=== PATIENT | male | born 1935 | race African-American/Black ===

== ENCOUNTER → 2017-05-23 | Outpatient (CLI) | payer BC ==
[2017-05-23 14:27] LABS: ADD MAN DIFF? NO
[2017-05-23 14:37] LABS: WHITE BLOOD COUNT 7.7 10^3/ul (4.8-10.8)
[2017-05-23 14:37] LABS: BASOPHILS % 0.5 % (0.0-2.0); EOSINOPHILS # 0.2 10^3/ul (0.0-0.5); EOSINOPHILS % 2.2 % (0.0-7.0); HEMOGLOBIN 13.4 g/dl (14.0-18.0); LYMPHOCYTES # 1.1 10^3/ul (0.8-2.9); LYMPHOCYTES % 13.7 % (15.0-51.0); MEAN CORPUSCULAR HEMOGLOBIN 31.1 pg (29.0-33.0); MEAN CORPUSCULAR HGB CONC 33.5 g/dl (32.0-37.0); MEAN CORPUSCULAR VOLUME 92.8 fl (82.0-101.0); MEAN PLATELET VOLUME 11.1 fl (7.4-10.4); MONOCYTE # 0.9 10^3/ul (0.3-0.9); MONOCYTES % 11.1 % (0.0-11.0); NEUTROPHIL # 5.6 10^3/ul (1.6-7.5); NEUTROPHILS % 72.4 % (39.0-77.0); PLATELET COUNT 186 10^3/UL (140-415); RED BLOOD COUNT 4.31 10^6/ul (4.70-6.10); RED CELL DISTRIBUTION WIDTH 12.8 % (11.5-14.5)
[2017-05-23 14:40] LABS: ADD UMIC NO; UR ASCORBIC ACID 40 mg/dL (NEGATIVE); UR BILIRUBIN (Dip) NEGATIVE (NEGATIVE); UR BLOOD (Dip) NEGATIVE (NEGATIVE); UR CLARITY CLEAR (CLEAR); UR COLOR YELLOW (YELLOW); UR GLUCOSE (Dip) NEGATIVE (NEGATIVE); UR KETONES (Dip) NEGATIVE (NEGATIVE); UR LEUKOCYTE ESTERASE (Dip) NEGATIVE Leu/ul (NEGATIVE); UR NITRITE (Dip) NEGATIVE (NEGATIVE); UR SPECIFIC GRAVITY (Dip) 1.016 (1.003-1.030); UR TOTAL PROTEIN (Dip) NEGATIVE (NEGATIVE); UR UROBILINOGEN (Dip) NEGATIVE (NEGATIVE)
[2017-05-23 14:47] LABS: INR 0.98; PROTIME 13.1 Sec (11.9-14.9)
[2017-05-23 14:48] LABS: PARTIAL THROMBOPLASTIN TIME 25.8 Sec (25.0-35.0)
[2017-05-23 15:01] LABS: ALANINE AMINOTRANSFERASE 38 IU/L (13-69); ALBUMIN 4.1 g/dl (3.3-4.9); ALBUMIN/GLOBULIN RATIO 1.24; ALKALINE PHOSPHATASE 66 IU/L (42-121); ANION GAP 16 (8-16); ASPARTATE AMINO TRANSFERASE 28 IU/L (15-46); BILIRUBIN,INDIRECT 0.5 mg/dl (0-1.1); BILIRUBIN,TOTAL 0.5 mg/dl (0.2-1.3); BLOOD UREA NITROGEN 21 mg/dl (7-20); CALCIUM 9.5 mg/dl (8.4-10.2); CARBON DIOXIDE 28 mmol/L (21-31); CHLORIDE 101 mmol/L (97-110); CREATININE 1.21 mg/dl (0.61-1.24); GLUCOSE 105 mg/dl (70-220); POTASSIUM 3.7 mmol/L (3.5-5.1); SODIUM 141 mmol/L (135-144); TOTAL PROTEIN 7.4 g/dl (6.1-8.1)
== END | disposition home or self-care (01) ==
LOC: LAB 12:54
DX: Z01.818 Encounter for other preprocedural examination (principal); J20.9 Acute bronchitis, unspecified; L97.209 Non-pressure chronic ulcer of unspecified calf with unspecified severity; I25.10 Atherosclerotic heart disease of native coronary artery without angina pectoris
CPT/HCPCS: 71046; 80053; 81003; 85025; 85610; 85730; 93005

== ENCOUNTER 2017-05-30 09:41 | Inpatient (IN) | payer MEDICARE, BC ==
[~2017-05-30 09:41] MED LIST: GELATIN SIZE 100 SPONGE; LIDOCAINE 1% (MPF) 30 ML INJ
[2017-05-30] MEDS: CEFAZOLIN 2 GM/50 ML (PMX) 50 ML IVPB (11:58)
[2017-05-30] MEDS ORDERED: MIDAZOLAM 1 MG/ML 2 ML INJ (12:03)
[2017-05-30] MEDS: THROMBIN 5000 UNIT VIAL (12:49)
[2017-05-30] MEDS: THROMBIN 5000 UNIT VIAL TOP (12:49)
[2017-05-30] MEDS: HEPARIN 1000 UNITS/ML 10 ML INJ (12:49)
[2017-05-30] MEDS ORDERED: PROTAMINE 250 MG INJ (14:04)
[2017-05-30] MEDS ORDERED: LIDOCAINE 2% (SDV) 5 ML INJ (14:28)
[2017-05-30] MEDS ORDERED: ETOMIDATE 20 MG INJ (14:28)
[2017-05-30] MEDS ORDERED: CEFAZOLIN 1 GM INJ (14:28)
[2017-05-30] MEDS ORDERED: ONDANSETRON 4 MG INJ (14:29)
[2017-05-30] MEDS: FENTAnyl 50 MCG/ML VIAL IV ×2 (14:58→16:09)
[2017-05-30] MEDS: ONDANSETRON 4 MG INJ IV (14:59)
[2017-05-30] MEDS ORDERED: MEPERIDINE 25 MG INJ IV (15:00)
[2017-05-30] MEDS ORDERED: METOCLOPRAMIDE 10 MG INJ IV (15:00)
[2017-05-30] MEDS: hydrALAzine 20 MG INJ IV (15:00)
[2017-05-30] MEDS ORDERED: HYDROmorphONE (0.2 MG/ML) 10ML SYG IV ×2 (15:00)
[2017-05-30] MEDS ORDERED: LABETALOL HCL 20MG INJ IV (15:00)
[2017-05-30] MEDS ORDERED: DIPHENHYDRAMINE 50 MG INJ IV (15:00)
[2017-05-30] MEDS ORDERED: ONDANSETRON 4 MG INJ IV (15:30)
[2017-05-30] MEDS ORDERED: OXYCODONE/ACETAMINOPHEN (5/325) TAB PO (15:30)
[2017-05-30] MEDS ORDERED: morphine 2 MG INJ IV (15:30)
[2017-05-30] MEDS: ASPIRIN 81 MG TAB PO (16:11)
[2017-05-30] MEDS: D5W-0.45 NACL + KCL 20 MEQ 1,000 ML IV (16:15)
[2017-05-30] MEDS: niCARdipine 50 MG in SOD CHLORIDE 0.9% 480 ML IV (16:21)
[2017-05-30] MEDS: ATORVASTATIN 40 MG TAB PO (21:00)
[2017-05-31] MEDS: D5W-0.45 NACL + KCL 20 MEQ 1,000 ML IV ×2 (01:11→11:11)
[2017-05-31] MEDS: niCARdipine 50 MG in SOD CHLORIDE 0.9% 480 ML IV (04:10)
[2017-05-31 05:48] LABS: ADD MAN DIFF? NO
[2017-05-31 05:58] LABS: WHITE BLOOD COUNT 8.7 10^3/ul (4.8-10.8)
[2017-05-31 05:58] LABS: BASOPHILS % 0.3 % (0.0-2.0); EOSINOPHILS # 0.2 10^3/ul (0.0-0.5); EOSINOPHILS % 1.9 % (0.0-7.0); HEMATOCRIT 34.4 % (42.0-52.0); HEMOGLOBIN 11.7 g/dl (14.0-18.0); LYMPHOCYTES # 0.9 10^3/ul (0.8-2.9); LYMPHOCYTES % 10.4 % (15.0-51.0); MEAN CORPUSCULAR HEMOGLOBIN 31.4 pg (29.0-33.0); MEAN CORPUSCULAR VOLUME 92.2 fl (82.0-101.0); MEAN PLATELET VOLUME 10.9 fl (7.4-10.4); MONOCYTE # 1.2 10^3/ul (0.3-0.9); MONOCYTES % 13.9 % (0.0-11.0); NEUTROPHIL # 6.4 10^3/ul (1.6-7.5); NEUTROPHILS % 73.3 % (39.0-77.0); PLATELET COUNT 147 10^3/UL (140-415); RED BLOOD COUNT 3.73 10^6/ul (4.70-6.10)
[2017-05-31 06:10] LABS: ANION GAP 11 (8-16); CARBON DIOXIDE 27 mmol/L (21-31); CHLORIDE 105 mmol/L (97-110); GLUCOSE 124 mg/dl (70-220)
[2017-05-31 06:13] LABS: BLOOD UREA NITROGEN 15 mg/dl (7-20); CALCIUM 9.1 mg/dl (8.4-10.2); CREATININE 0.95 mg/dl (0.61-1.24); POTASSIUM 3.5 mmol/L (3.5-5.1); SODIUM 139 mmol/L (135-144)
[2017-05-31] MEDS: AMLODIPINE 5 MG TAB PO (09:27)
[2017-05-31] MEDS: LORAZEPAM 0.5 MG TAB PO ×2 (09:39→16:23)
[2017-05-31] MEDS ORDERED: ASPIRIN (EC) 325 MG TAB PO (09:41)
[2017-05-31] MEDS: ASPIRIN 325 MG TAB PO (10:24)
[2017-05-31] MEDS: ATORVASTATIN 40 MG TAB PO (20:56)
[2017-06-01] MEDS: LORAZEPAM 0.5 MG TAB PO (01:15)
[2017-06-01] MEDS: DIPHENHYDRAMINE 25 MG CAP PO (01:15)
[2017-06-01 07:44] LABS: ADD MAN DIFF? NO
[2017-06-01 07:49] LABS: ABNORMAL IP MESSAGE 1; BASOPHILS % 0.4 % (0.0-2.0); EOSINOPHILS # 0.3 10^3/ul (0.0-0.5); EOSINOPHILS % 2.6 % (0.0-7.0); HEMATOCRIT 36.3 % (42.0-52.0); HEMOGLOBIN 12.5 g/dl (14.0-18.0); LYMPHOCYTES # 1.7 10^3/ul (0.8-2.9); LYMPHOCYTES % 14.9 % (15.0-51.0); MEAN CORPUSCULAR HEMOGLOBIN 31.6 pg (29.0-33.0); MEAN CORPUSCULAR HGB CONC 34.4 g/dl (32.0-37.0); MEAN CORPUSCULAR VOLUME 91.7 fl (82.0-101.0); MONOCYTE # 1.8 10^3/ul (0.3-0.9); MONOCYTES % 15.6 % (0.0-11.0); NEUTROPHIL # 7.5 10^3/ul (1.6-7.5); NEUTROPHILS % 66.3 % (39.0-77.0); PLATELET COUNT 152 10^3/UL (140-415); POSITIVE DIFF @See below; RED BLOOD COUNT 3.96 10^6/ul (4.70-6.10); RED CELL DISTRIBUTION WIDTH 12.9 % (11.5-14.5)
[2017-06-01 07:49] LABS: WHITE BLOOD COUNT 11.3 10^3/ul (4.8-10.8)
[2017-06-01 08:21] LABS: ANION GAP 16 (8-16); BLOOD UREA NITROGEN 17 mg/dl (7-20); CALCIUM 9.1 mg/dl (8.4-10.2); CARBON DIOXIDE 22 mmol/L (21-31); CHLORIDE 106 mmol/L (97-110); CREATININE 1.08 mg/dl (0.61-1.24); GLUCOSE 126 mg/dl (70-220); MAGNESIUM 1.7 mg/dl (1.7-2.5); POTASSIUM 3.6 mmol/L (3.5-5.1); SODIUM 140 mmol/L (135-144)
[2017-06-01] MEDS: AMLODIPINE 5 MG TAB PO (09:02)
[2017-06-01] MEDS: ASPIRIN 325 MG TAB PO (09:02)
[2017-06-01] MEDS: MAGNESIUM SULFATE 2 GM/50 ML 50 ML IVPB (14:17)
== END 2017-06-01 17:20 | disposition home or self-care (01) | DRG 272 ==
LOC: REC 09:41 → TEL 05-31 11:30
PROC: 04CJ0ZZ Extirpation of Matter from Left External Iliac Artery, Open Approach (ICD-10-PCS; principal; 2017-05-30 11:58)
PROC: 04CL0ZZ Extirpation of Matter from Left Femoral Artery, Open Approach (ICD-10-PCS; 2017-05-30 11:58)
DX: I70.242 Atherosclerosis of native arteries of left leg with ulceration of calf (principal); F01.50 Vascular dementia, unspecified severity, without behavioral disturbance, psychotic disturbance, mood disturbance, and anxiety; I10 Essential (primary) hypertension; L97.229 Non-pressure chronic ulcer of left calf with unspecified severity; E78.5 Hyperlipidemia, unspecified
CPT/HCPCS: 80048; 83735; 85025; 88304; 88311

== ENCOUNTER → 2018-08-14 | Outpatient (CLI) | payer BC, MEDICARE ==
[2018-08-14 12:11] LABS: ADD MAN DIFF? NO
[2018-08-14 12:12] LABS: WHITE BLOOD COUNT 6.7 10^3/ul (4.8-10.8)
[2018-08-14 12:12] LABS: BASOPHIL # 0.1 10^3/ul (0.0-0.1); BASOPHILS % 0.8 % (0.0-2.0); EOSINOPHILS # 0.2 10^3/ul (0.0-0.5); EOSINOPHILS % 3.3 % (0.0-7.0); HEMATOCRIT 40.7 % (42.0-52.0); HEMOGLOBIN 13.5 g/dl (14.0-18.0); LYMPHOCYTES # 1.4 10^3/ul (0.8-2.9); LYMPHOCYTES % 21.2 % (15.0-51.0); MEAN CORPUSCULAR HEMOGLOBIN 30.8 pg (29.0-33.0); MEAN CORPUSCULAR HGB CONC 33.2 g/dl (32.0-37.0); MEAN CORPUSCULAR VOLUME 92.7 fl (82.0-101.0); MEAN PLATELET VOLUME 10.9 fl (7.4-10.4); MONOCYTE # 0.7 10^3/ul (0.3-0.9); NEUTROPHIL # 4.2 10^3/ul (1.6-7.5); NEUTROPHILS % 63.4 % (39.0-77.0); PLATELET COUNT 158 10^3/UL (140-415); RED BLOOD COUNT 4.39 10^6/ul (4.70-6.10); RED CELL DISTRIBUTION WIDTH 13.2 % (11.5-14.5)
[2018-08-14 12:31] LABS: ANION GAP 8 (5-13); BLOOD UREA NITROGEN 20 mg/dl (7-20); CALCIUM 9.4 mg/dl (8.4-10.2); CARBON DIOXIDE 27 mmol/L (21-31); CHLORIDE 106 mmol/L (97-110); CREATININE 0.94 mg/dl (0.61-1.24); GLUCOSE 89 mg/dl (70-220); MAGNESIUM 2.1 mg/dl (1.7-2.5); POTASSIUM 3.9 mmol/L (3.5-5.1); SODIUM 141 mmol/L (135-144)
[2018-08-14 12:34] LABS: INR 1.04; PARTIAL THROMBOPLASTIN TIME 24.2 Sec (23.0-35.0); PROTIME 13.7 Sec (11.9-14.9); PT RATIO 1.1
[2018-08-14 12:54] LABS: HEMOGLOBIN A1C 5.8 % (0-5.9)
== END | disposition home or self-care (01) ==
LOC: LAB 11:47
DX: I73.9 Peripheral vascular disease, unspecified (principal); L97.929 Non-pressure chronic ulcer of unspecified part of left lower leg with unspecified severity; R73.03 Prediabetes
CPT/HCPCS: 80048; 83036; 83735; 85025; 85610; 85730